=== PATIENT | male | born 1990 ===

== ENCOUNTER 2019-04-19 10:48 | Day surgery (SDC) | payer OTHER ==
[~2019-04-19 10:48] MED LIST: LACTATED RINGERS 1,000 ML IV SCH; LIDOCAINE 1% 20 ML VIAL (10MG/ML) FOR IV START INTRADERMA PRN; TETRACAINE 0.5% OPHTH (PF) DROPS 4 ML BTL OP ONE
[2019-04-19 11:20] VITALS: TEMP 97.5
[2019-04-19] MEDS: TROPICAMIDE 1% OPHTH DROPS 2 ML BTL LEFT EYE SCH ×3 (11:21→11:39)
[2019-04-19] MEDS: PHENYLEPHRINE 2.5% OPHTH DRP 2ML OP SCH ×3 (11:25→11:40)
[2019-04-19] MEDS: CYCLOPENTOLATE 1% OPHTH SOLN 2 ML BTL OP SCH ×3 (11:27→11:42)
[2019-04-19] MEDS: CIPROFLOXACIN 0.3% OPHTH SOLN 5 ML BTL LEFT EYE SCH ×3 (11:29→11:44)
[2019-04-19] MEDS ORDERED: DUOVISC KIT (BLUE BOX) INTRAOCULA ONE (12:35)
[2019-04-19] MEDS ORDERED: BALANCED SALT IRRIG SOLN COMB2 15 ML IRRIG.SOLN INTRAOCULA ONE (12:35)
[2019-04-19] MEDS ORDERED: MIDAZOLAM 2 MG/2 ML VIAL ONE (12:47)
[2019-04-19] MEDS ORDERED: fentaNYL (PF) 50 MCG/ML 2 ML AMP ONE (12:47)
[2019-04-19] MEDS ORDERED: prednisoLONE ACETATE 1% OPHTH DROPS 5 ML BTL LEFT EYE SCH (13:00)
[2019-04-19] MEDS ORDERED: EPINEPHrine (PF) 0.5 ML in BALANCED SALT IRRIG SOLN COMB2 500 ML IRRIGATION ONE (13:01)
[2019-04-19] MEDS ORDERED: CIPROFLOXACIN 0.3% OPHTH SOLN 5 ML BTL LEFT EYE ONE (13:12)
--- NOTE | 2019-04-19 13:34 | P.OP ---
Date of Procedure: 04/19/19 Preoperative Diagnosis: cataract, left synechiae, left Postoperative Diagnosis: same Procedure(s) Performed: cataract surgery left eye Synechiolysis, left eye Anesthesia: local Surgeon: Regulo Fernandes Condition: stable Disposition: same day Plan - Discharge Summary Discharge Rx Participant: No New Discharge Prescriptions: No Action Escitalopram [Lexapro] 10 mg PO DAILY Discharge Medication List Escitalopram [Lexapro] 10 mg PO DAILY 04/14/19 [History]
[2019-04-19 13:54] VITALS: BP 123/76; PULSE 78; RESP 18
[2019-04-19] MEDS ORDERED: TRYPAN BLUE 0.06% SYRINGE 0.5 ML SYRINGE INTRAOCULA ONE (13:57)
[2019-04-19] MEDS ORDERED: LIDOCAINE (PF) 10 MG/ML 5ML AMP MISCELLANE ONE (13:58)
[2019-04-19] MEDS ORDERED: BRIMONIDINE TARTRATE 0.2% DROPS 5 ML BTL LEFT EYE SCH (16:00)
--- NOTE | 2019-06-10 08:17 | OP ---
OPERATIVE REPORT DATE OF SERVICE: 04/19/2019 PREOPERATIVE DIAGNOSES: 1. Visually significant cataract, dense, left eye. 2. Posterior synechiae, left eye. POSTOP DIAGNOSES: 1. Visually significant cataract, dense, left eye. 2. Posterior synechiae, left eye. PROCEDURE PERFORMED: 1. Complex cataract extraction with use of Trypan blue with phacoemulsification and intraocular lens implant, left eye. 2. Synechiolysis, left eye. SURGEON: Regulo Fernandes M.D. OFFENSIVE COORDINATOR: None. COMPLICATIONS: None. ANESTHESIA: Local with IV sedation. SPECIMEN: None. ESTIMATED BLOOD LOSS: 0 mL. OPERATIVE TECHNIQUE: Mr. Mccall has a significant cataract with synechiolysis in the left eye that has affected his vision. The risks, benefits, alternatives, indications of cataract surgery were discussed in the office prior to scheduling surgery and they were discussed again in the preoperative holding area. The patient received informed consent and would like to proceed with cataract surgery. After informed consent was obtained, the left eye was marked in the preoperative area and the patient was taken to the operating room. The left eye was given tetracaine eye drops and the patient received IV sedation from the anesthesia team. The left eye was prepped and draped in the usual sterile ophthalmic fashion. A lid speculum was placed in the eye and the microscope was swung into position. A paracentesis incision was made in the left eye inferiorly. The Trypan Blue was injected into the anterior chamber. Viscoelastic was then injected into the anterior chamber. A clear corneal incision was made temporally. Synechiolysis was then carried out using a 27-gauge needle to release the adhesions of the iris to the anterior capsule of the lens. The sulcus was then inflated using Provisc to create the appropriate space. A cystotome and Utrata forceps were then used to create a continuous curvilinear capsulorrhexis. The lens was hydrated and rotated. Phacoemulsification was used to remove the lens nucleus using divide and conquer technique. The optic nucleus was then removed using phacoemulsification. The irrigation/aspiration handpiece was then used to remove the remaining cortex. The posterior bag was polished. An intraocular lens was placed in the capsular bag without incident. The irrigation aspiration handpiece were then used to remove remaining viscoelastic from the eye. The wounds were checked and found to be watertight. Intraocular pressure was found to be favorable using tactile technique. The lid speculum was then removed and the microscope was swung out of position. Steroid drops and antibiotic drops were placed in the operative eye. A shield was taped over the operative eye and the patient was taken to recovery in stable condition. Given instructions for postoperative care. DEBBIE / DINORAH: [id number] /
== END 2019-04-19 14:08 | disposition home or self-care (01) ==
LOC: OR 10:48
PROVIDERS: ATTEND Ophthalmology
DX: H25.12 Age-related nuclear cataract, left eye (principal); H21.542 Posterior synechiae (iris), left eye; F34.1 Dysthymic disorder
CPT/HCPCS: 66984; V2632; J2250; J0171; J2001; J3010